=== PATIENT | female | born 1960 ===

== ENCOUNTER 2017-03-16 19:42 | Emergency (ER) | payer MEDICAID ==
[2017-03-16 19:43] VITALS: BMI 25.2
[2017-03-16 19:56] VITALS: BP 131/91; PULSE 78; RESP 16; TEMP 97.6; O2SAT 98
--- NOTE | 2017-03-16 20:32 | ED PDOC ---
HPI: General Adult Time Seen by Provider: 03/16/17 20:08 Chief Complaint (Nursing): Flu-like Symptoms Chief Complaint (Provider): chronic pain History Per: Patient Additional Complaint(s): 56 year old female with history of chronic back pain presents to ED requesting refill of pain medications. Patient takes narco daily and has been out of these meds. Patient denies any fall or trauma. Past Medical History Reviewed: Historical Data, Nursing Documentation, Vital Signs Vital Signs: Last Vital Signs Temp 97.6 F 03/16/17 19:46 Pulse 78 03/16/17 19:46 Resp 16 03/16/17 19:46 BP 131/91 H 03/16/17 19:46 Pulse Ox 98 03/16/17 19:46 - Medical History PMH: Anxiety, Back Problems, CVA (3 times, 2000, 2001 and 2010 with residual left weakness ), Depression, Gastritis, Gall Bladder Disease, HTN, Hypercholesterolemia, Kidney Stones, Migraine, Chronic Kidney Disease, Chronic Pain - Surgical History Surgical History: Appendectomy, Cholecystectomy, Endoscopy, Tonsillectomy, C- Section - Family History Family History: States: No Known Family Hx, Hypertension - Living Arrangements Living Arrangements: With Family - Immunization History Hx Tetanus Toxoid Vaccination: (UTD) - Home Medications Home Medications: Ambulatory Orders Medication Instructions Recorded Labetalol [Trandate] 200 mg PO Q8 #0 tab 05/08/15 NIFEdipine ER [Nifedipine ER] 60 mg PO DAILY #0 ter 05/08/15 Spironolactone [Aldactone] 50 mg PO DAILY #0 tab 05/08/15 Cyclobenzaprine [Flexeril] 10 mg PO Q8 PRN #15 tab 08/04/15 traMADol [Ultram] 50 mg PO Q8 #10 tab 05/05/16 Hydrocodone/Acetaminophen [[place] 10 - 325 mg PO Q6 PRN 12/05/16 10-325 Tablet] Zolpidem [Ambien] 10 mg PO HS 12/05/16 - Allergies Allergies/Adverse Reactions: Allergies Allergy/AdvReac Type Severity Reaction Status Date / Time ciprofloxacin [From Cipro] Allergy RASH Verified 08/02/15 10:28 ciprofloxacin HCl Allergy RASH Verified 08/02/15 10:28 [From Cipro] ketorolac tromethamine Allergy RASH Verified 08/02/15 10:28 [From Toradol] seafood AdvReac RASH Uncoded 12/05/16 08:48 Review of Systems ROS Statement: Except As Marked, All Systems Reviewed And Found Negative Constitutional: Negative for: Fever, Chills Musculoskeletal: Positive for: Back Pain Physical Exam - Reviewed Nursing Documentation Reviewed: Yes Vital Signs Reviewed: Yes - Physical Exam Appears: Positive for: Well Skin: Negative for: Rash Eye Exam: Positive for: Normal appearance Back: Positive for: Vertebral Tenderness (lumbar). Negative for: L CVA Tenderness, R CVA Tenderness Neurologic/Psych: Positive for: Alert, Oriented - ECG O2 Sat by Pulse Oximetry: 98 Pulse Ox Interpretation: Normal Medical Decision Making Medical Decision Makin56 year old with chronic pain Therapist Respiratory explained to patient the [facility] Pain Management Policy and she was given a copy of the policy. Patient asked to be seen by , Dr. Buchanan came to bedside to reiterate the same information. Patient was given discharge instructions but she refused to sign and she left ED. Disposition - Clinical Impression Clinical Impression: Chronic pain - Disposition Referrals: Rashard Hemphill MD [Medical Doctor] - Disposition: Routine/Home Disposition Time: 20:36 Condition: STABLE Additional Instructions: Follow up with pain management as soon as possible Instructions: Chronic Pain (ED)
== END 2017-03-16 20:52 | disposition home or self-care (01) ==
LOC: H.ER 19:42
DX: G89.29 Other chronic pain (principal); E78.00 Pure hypercholesterolemia, unspecified; F32.9 Major depressive disorder, single episode, unspecified; F41.9 Anxiety disorder, unspecified; I12.9 Hypertensive chronic kidney disease with stage 1 through stage 4 chronic kidney disease, or unspecified chronic kidney disease

== ENCOUNTER 2017-09-07 19:36 | Emergency (ER) | payer MEDICAID ==
[2017-09-07 19:37] VITALS: BMI 24.5
[2017-09-07 20:18] VITALS: BP 155/99; PULSE 98; RESP 16; TEMP 97.5; O2SAT 100
== END 2017-09-07 21:30 | disposition left against medical advice (07) ==
LOC: H.ER 19:36
DX: Z02.89 Encounter for other administrative examinations (principal)

== ENCOUNTER 2017-12-05 08:30 | Emergency (ER) | payer MEDICAID ==
[2017-12-05 08:40] VITALS: BMI 25.2
[2017-12-05] MEDS ORDERED: Naproxen 500 MG TAB PO STA (09:23)
--- NOTE | 2017-12-05 09:29 | ED PDOC ---
HPI: Headache Time Seen by Provider: 12/05/17 09:07 Chief Complaint (Nursing): Headache Chief Complaint (Provider): Headache History Per: Patient History/Exam Limitations: no limitations Onset/Duration Of Symptoms: Days Current Symptoms Are (Timing): Still Present Associated Symptoms: Photophobia. denies: Blurred Vision, Nausea, Vomiting Additional Complaint(s): 57 y/o female with a PMHx of migraines presents to the ED complaining of headache. Patient reports she sees an opthamologist for pain behind the left eye. Patient states she is on Toradol and eye drops. Patient reports of taking Vicodine and Vicks Rub with no relief. Patient states her last CT of the head and brain MRI was 2 years ago. Of note, patient was seen at [facility] ER on 2017 for chronic pain issues. Denies fever, neck stiffness, nausea, vomiting and visual changes. PMD: John Washington Past Medical History Reviewed: Historical Data, Nursing Documentation, Vital Signs Vital Signs: Last Vital Signs Temp 98.5 F 12/05/17 08:40 Pulse 90 12/05/17 08:40 Resp 18 12/05/17 08:40 BP 152/101 H 12/05/17 08:40 Pulse Ox 99 12/05/17 08:40 - Medical History PMH: Anxiety, Back Problems, CVA (3 times, 2000, 2001 and 2010 with residual left weakness ), Depression, Gastritis, Gall Bladder Disease, HTN, Hypercholesterolemia, Kidney Stones, Migraine, Chronic Kidney Disease, Chronic Pain - Surgical History Surgical History: Appendectomy, Cholecystectomy, Endoscopy, Tonsillectomy, C- Section - Family History Family History: States: Hypertension - Immunization History Hx Tetanus Toxoid Vaccination: (UTD) Hx Influenza Vaccination: No Hx Pneumococcal Vaccination: No - Home Medications Home Medications: Ambulatory Orders Medication Instructions Recorded Labetalol [Trandate] 200 mg PO Q8 #0 tab 05/08/15 Spironolactone [Aldactone] 50 mg PO DAILY #0 tab 05/08/15 traMADol [Ultram] 50 mg PO Q8 #10 tab 05/05/16 Hydrocodone/Acetaminophen [[place] 10 - 325 mg PO Q6 PRN 12/05/16 10-325 Tablet] Zolpidem [Ambien] 10 mg PO HS 12/05/16 Cyclobenzaprine [Flexeril] 10 mg PO Q12 PRN #10 tab 05/01/17 - Allergies Allergies/Adverse Reactions: Allergies Allergy/AdvReac Type Severity Reaction Status Date / Time ciprofloxacin [From Cipro] Allergy RASH Verified 11/25/17 12:05 ciprofloxacin HCl Allergy RASH Verified 11/25/17 12:05 [From Cipro] ketorolac tromethamine Allergy RASH Verified 11/25/17 12:05 [From Toradol] seafood AdvReac RASH Uncoded 11/25/17 12:05 Review of Systems ROS Statement: Except As Marked, All Systems Reviewed And Found Negative Constitutional: Negative for: Fever Eyes: Negative for: Vision Change Gastrointestinal: Negative for: Nausea, Vomiting Musculoskeletal: Negative for: Neck Pain Neurological: Positive for: Headache. Negative for: Weakness Physical Exam - Reviewed Nursing Documentation Reviewed: Yes Vital Signs Reviewed: Yes - Physical Exam Appears: Positive for: In Acute Distress Head Exam: Positive for: ATRAUMATIC, NORMOCEPHALIC Skin: Positive for: Normal Color, Warm, Dry Eye Exam: Positive for: Normal appearance, EOMI, PERRL Neck: Positive for: Normal, Painless ROM, Supple Cardiovascular/Chest: Positive for: Regular Rate, Rhythm. Negative for: Murmur Respiratory: Positive for: Normal Breath Sounds. Negative for: Respiratory Distress Gastrointestinal/Abdominal: Positive for: Normal Exam, Soft. Negative for: Tenderness Back: Positive for: Normal Inspection. Negative for: L CVA Tenderness, R CVA Tenderness, Vertebral Tenderness Extremity: Positive for: Normal ROM. Negative for: Deformity Neurologic/Psych: Positive for: Alert, Oriented. Negative for: Motor/Sensory Deficits - ECG O2 Sat by Pulse Oximetry: 99 (RA) Pulse Ox Interpretation: Normal Medical Decision Making Medical Decision Making: Time: 922 Plan: -- CT Head w/o Contrast -- Naproxen 500 mg PO Accession No. : [id number] Patient Name / ID : STEPHANIE OLIVIA / [id number] Exam Date : 12/05/2017 09:37:01 ( Approved ) Study Comment : Sex / Age : F / 57Y Creator : India Mcneil MD Dictator : India Mcneil MD Post Office Manager : Commercial Accountant : India Mcneil MD Approver2 : Report Date : 12/05/2017 10:05:51 My Comment : Date of service: 12/05/2017 PROCEDURE: CT HEAD WITHOUT CONTRAST. HISTORY: [facility] COMPARISON: 2015 TECHNIQUE: Axial computed tomography images were obtained through the head/brain without intravenous contrast. Radiation dose: Total exam DLP = 637 MGy-cm. This CT exam was performed using one or more of the following dose reduction techniques: Automated exposure control, adjustment of the mA and/or kV according to patient size, and/or use of iterative reconstruction technique. FINDINGS: HEMORRHAGE: No intracranial hemorrhage. BRAIN: No mass effect or edema. There is a small chronic area of encephalomalacia in the right caudate consistent with chronic lacunar infarct. There is additionally stable appearance of the patient's mild right temporal encephalomalacia. No new cortical effacement is seen. Mild scattered small vessel changes are noted in the white matter tracts. Posterior fossa is unchanged. There is moderate calcific atherosclerotic change of the distal vertebral arteries, basilar artery, and intracranial internal carotid arteries. VENTRICLES: Unremarkable. No hydrocephalus. CALVARIUM: Unchanged from prior study. PARANASAL SINUSES: Unremarkable as visualized. No significant inflammatory changes. MASTOID AIR CELLS: Unremarkable as visualized. No inflammatory changes. OTHER FINDINGS: None. IMPRESSION: No evidence of recent infarct or acute intracranial hemorrhage. Stable small vessel changes and small chronic lacunar infarct in the right caudate. Stable mild encephalomalacia in the right temporal lobe. Scribe Attestation: Documented by Nemo Bradley acting as a scribe for Zo Crow MD. Provider Scribe Attestation: All medical record entries made by the Scribe were at my direction and personally dictated by me. I have reviewed the chart and agree that the record accurately reflects my personal performance of the history, physical exam, medical decision making, and the department course for this patient. I have also personally directed, reviewed, and agree with the discharge instructions and disposition. Disposition - Clinical Impression Clinical Impression: Chronic headache disorder - Patient ED Disposition Is Patient to be Admitted: No - Disposition Referrals: John Washington MD [Staff Provider] - Disposition: Routine/Home Disposition Time: 11:00 Condition: IMPROVED Instructions: Headache, Adult Forms: [facility] (Greek)
[2017-12-05] MEDS ORDERED: Naproxen 500 MG TAB PO ONE (09:40)
--- NOTE | 2017-12-05 10:07 | CT ---
Date of service: 12/05/2017 PROCEDURE: CT HEAD WITHOUT CONTRAST. HISTORY: [facility] COMPARISON: 2016 TECHNIQUE: Axial computed tomography images were obtained through the head/brain without intravenous contrast. Radiation dose: Total exam DLP = 637 MGy-cm. This CT exam was performed using one or more of the following dose reduction techniques: Automated exposure control, adjustment of the mA and/or kV according to patient size, and/or use of iterative reconstruction technique. FINDINGS: HEMORRHAGE: No intracranial hemorrhage. BRAIN: No mass effect or edema. There is a small chronic area of encephalomalacia in the right caudate consistent with chronic lacunar infarct. There is additionally stable appearance of the patient's mild right temporal encephalomalacia. No new cortical effacement is seen. Mild scattered small vessel changes are noted in the white matter tracts. Posterior fossa is unchanged. There is moderate calcific atherosclerotic change of the distal vertebral arteries, basilar artery, and intracranial internal carotid arteries. VENTRICLES: Unremarkable. No hydrocephalus. CALVARIUM: Unchanged from prior study. PARANASAL SINUSES: Unremarkable as visualized. No significant inflammatory changes. MASTOID AIR CELLS: Unremarkable as visualized. No inflammatory changes. OTHER FINDINGS: None. IMPRESSION: No evidence of recent infarct or acute intracranial hemorrhage. Stable small vessel changes and small chronic lacunar infarct in the right caudate. Stable mild encephalomalacia in the right temporal lobe.
[2017-12-05 10:59] VITALS: RESP 19
[2017-12-05 11:41] VITALS: BP 140/93; PULSE 80; TEMP 98.7
[2017-12-05 17:55] VITALS: O2SAT 99
== END 2017-12-05 11:42 | disposition home or self-care (01) ==
LOC: H.ER 08:30
DX: R51 Headache (principal); G89.29 Other chronic pain; I12.9 Hypertensive chronic kidney disease with stage 1 through stage 4 chronic kidney disease, or unspecified chronic kidney disease; Z86.59 Personal history of other mental and behavioral disorders; N18.9 Chronic kidney disease, unspecified; Z87.442 Personal history of urinary calculi; G93.89 Other specified disorders of brain

== ENCOUNTER 2018-04-06 19:46 | Emergency (ER) | payer MEDICAID ==
[2018-04-06 19:47] VITALS: BMI 25.2
--- NOTE | 2018-04-06 20:24 | ED PDOC ---
HPI: General Adult Time Seen by Provider: 04/06/18 20:10 Chief Complaint (Nursing): Upper Extremity Problem/Injury Chief Complaint (Provider): bodyaches History Per: Patient History/Exam Limitations: no limitations Onset/Duration Of Symptoms: Days (3) Current Symptoms Are (Timing): Still Present Additional Complaint(s): 57 y/o female presents for evaluation of bodyaches x 3 days. Patient reports long standing of history of pain to extremities; states it usually happens when her potassium is low. Patient has been taking pain Vicodin and Tramadol without improvement. Denies fever, headache, dizziness, nausea/vomiting, chest pain, shortness of breath, palpitations, abdominal pain, changes in bowel movements, leg swelling, recent travel. Past Medical History Reviewed: Historical Data, Nursing Documentation, Vital Signs Vital Signs: Last Vital Signs Temp 98.4 F 04/06/18 20:00 Pulse 111 H 04/06/18 20:00 Resp 16 04/06/18 20:00 BP 146/96 H 04/06/18 20:00 Pulse Ox 98 04/06/18 20:00 - Medical History PMH: Anxiety, Back Problems, CVA (3 times, 2000, 2001 and 2010 with residual left weakness ), Depression, Gastritis, Gall Bladder Disease, HTN, Hypercholesterolemia, Kidney Stones, Migraine, Chronic Kidney Disease, Chronic Pain - Surgical History Surgical History: Appendectomy, Cholecystectomy, Endoscopy, Tonsillectomy, C- Section - Family History Family History: States: Hypertension - Immunization History Hx Tetanus Toxoid Vaccination: (UTD) Hx Influenza Vaccination: No Hx Pneumococcal Vaccination: No - Home Medications Home Medications: Ambulatory Orders Medication Instructions Recorded Labetalol [Trandate] 200 mg PO Q8 #0 tab 05/08/15 Spironolactone [Aldactone] 50 mg PO DAILY #0 tab 05/08/15 traMADol [Ultram] 50 mg PO Q8 #10 tab 05/05/16 Hydrocodone/Acetaminophen [[place] 10 - 325 mg PO Q6 PRN 12/05/16 10-325 Tablet] Zolpidem [Ambien] 10 mg PO HS 12/05/16 Cyclobenzaprine [Flexeril] 10 mg PO Q12 PRN #10 tab 05/01/17 - Allergies Allergies/Adverse Reactions: Allergies Allergy/AdvReac Type Severity Reaction Status Date / Time ciprofloxacin [From Cipro] Allergy RASH Verified 04/06/18 20:00 ciprofloxacin HCl Allergy RASH Verified 04/06/18 20:00 [From Cipro] ketorolac tromethamine Allergy RASH Verified 04/06/18 20:00 [From Toradol] seafood AdvReac RASH Uncoded 04/06/18 20:00 Review of Systems ROS Statement: Except As Marked, All Systems Reviewed And Found Negative Musculoskeletal: Positive for: Arm Pain, Leg Pain Physical Exam - Reviewed Nursing Documentation Reviewed: Yes Vital Signs Reviewed: Yes - Physical Exam Appears: Positive for: Well, Non-toxic, No Acute Distress Head Exam: Positive for: ATRAUMATIC, NORMAL INSPECTION, NORMOCEPHALIC Skin: Positive for: Normal Color Eye Exam: Positive for: Normal appearance ENT: Positive for: Normal ENT Inspection Cardiovascular/Chest: Positive for: Regular Rate, Rhythm Respiratory: Positive for: Normal Breath Sounds Gastrointestinal/Abdominal: Positive for: Normal Exam Back: Positive for: Normal Inspection Extremity: Positive for: Normal ROM. Negative for: Calf Tenderness Neurologic/Psych: Positive for: Alert, Oriented (x3) - Laboratory Results Result Diagrams: 04/06/18 20:38 04/06/18 21:58 - ECG O2 Sat by Pulse Oximetry: 98 - Progress ED Course And Treament: -cbc -cmp -magnesium -phosphorous -Percocet PO -Flexeril PO On re-eval, patient states pain improved Patient requesting Percocet rx,. [place] patient received 60 tablets of Tramadol 50mg and Vicodin 7.5/325mg tablets on 03/25/18; advised no narcotic rx will be given and she will need to follow up with her pain management. Offered Naproxen but patient declined. Patient requires no further intervention in the ED and is stable for discharge at this time Return precautions given Disposition - Clinical Impression Clinical Impression: Generalized pain - Patient ED Disposition Is Patient to be Admitted: No Counseled Patient/Family Regarding: Studies Performed, Diagnosis, Need For Followup - Disposition Disposition: Routine/Home Disposition Time: 22:43 Condition: IMPROVED Instructions: Chronic Pain Forms: [facility] (Maltese)
[2018-04-06] MEDS ORDERED: Oxycodone/Acetaminophen 5/325 mg Tab PO ONE (20:42)
[2018-04-06 20:44] LABS: BASO # 0.1 K/uL (0.0-0.2); BASO % 0.7 % (0.0-2.0); EOS % 0.7 % (0.0-4.0); HEMOGLOBIN 12.8 g/dL (12.0-16.0); MEAN CELL VOLUME 87.8 fl (81.0-99.0); MEAN CORPUSCULAR HEMOGLOBIN 29.6 pg (27.0-31.0); MEAN CORPUSCULAR HGB CONC 33.7 g/dL (33.0-37.0); MEAN PLATELET VOLUME 9.2 fl (7.2-11.7); MONO # 0.5 K/uL (0.0-0.8); MONO % 6.6 % (0.0-10.0); NEUT # 4.9 K/uL (1.8-7.0); NRBC % 0.1 % (0.0-0.0); RBC 4.33 Mil/uL (3.80-5.20); RED CELL DISTRIBUTION WIDTH 13.8 % (11.5-14.5); WHITE BLOOD COUNT 7.5 K/uL (4.8-10.8)
[2018-04-06] MEDS ORDERED: Oxycodone/Acetaminophen 5/325 mg Tab ONE (20:52)
[2018-04-06 21:10] LABS: BLOOD UREA NITROGEN 27 mg/dl (7-17); CALCIUM 9.8 mg/dL (8.4-10.2); GFR NON-AFRICAN AMERICAN 58
[2018-04-06 21:41] LABS: ALB/GLOB RATIO 1.4 (1.0-2.1); ALBUMIN 4.6 g/dL (3.5-5.0); ALT/SGPT 29 U/L (9-52); AST/SGOT 40 U/L (14-36)
[2018-04-06 22:52] VITALS: BP 148/95; PULSE 99; RESP 18; TEMP 98.3; O2SAT 99
== END 2018-04-06 23:00 | disposition home or self-care (01) ==
LOC: H.ER 19:46
DX: G89.29 Other chronic pain (principal); E78.00 Pure hypercholesterolemia, unspecified; I12.9 Hypertensive chronic kidney disease with stage 1 through stage 4 chronic kidney disease, or unspecified chronic kidney disease

== ENCOUNTER 2018-05-12 14:46 | Emergency (ER) | payer MEDICAID ==
[2018-05-12 15:03] VITALS: BMI 26.9
[2018-05-12 15:04] VITALS: BP 144/94; PULSE 98; RESP 20; TEMP 99.2; O2SAT 100
--- NOTE | 2018-05-12 15:42 | ED PDOC ---
HPI: Back Time Seen by Provider: 05/12/18 15:20 Chief Complaint (Nursing): Back Pain Chief Complaint (Provider): back pain History Per: Patient (57 y/o female with chronic back exacerbated by leaning forward doing laundry. States she had worsening pain yesteday and attempted use of mother's percocet without relief. Took 2 vicodin without any additional help. States she tried multiple tylenol and went to [facility] dr[facility] hemphill office but unable to be seen . Was advised by office staff to go to ED for worsening pain. Was last seen by Dr. Hemphill 05/06/2018 and written hydrocodone #60. Next appt next .) Past Medical History Reviewed: Historical Data, Nursing Documentation, Vital Signs Vital Signs: Last Vital Signs Temp 99.2 F 05/12/18 15:03 Pulse 98 H 05/12/18 15:03 Resp 20 05/12/18 15:03 BP 144/94 H 05/12/18 15:03 Pulse Ox 100 05/12/18 15:03 - Medical History PMH: Anxiety, Back Problems, CVA (3 times, 2000, 2001 and 2010 with residual left weakness ), Depression, Gastritis, Gall Bladder Disease, HTN, Hypercholesterolemia, Kidney Stones, Migraine, Chronic Kidney Disease, Chronic Pain - Surgical History Surgical History: Appendectomy, Cholecystectomy, Endoscopy, Tonsillectomy, C- Section - Family History Family History: States: Hypertension - Immunization History Hx Tetanus Toxoid Vaccination: (UTD) Hx Influenza Vaccination: No Hx Pneumococcal Vaccination: No - Home Medications Home Medications: Ambulatory Orders Medication Instructions Recorded Labetalol [Trandate] 200 mg PO Q8 #0 tab 05/08/15 Spironolactone [Aldactone] 50 mg PO DAILY #0 tab 05/08/15 traMADol [Ultram] 50 mg PO Q8 #10 tab 05/05/16 Hydrocodone/Acetaminophen [[place] 10 - 325 mg PO Q6 PRN 12/05/16 10-325 Tablet] Zolpidem [Ambien] 10 mg PO HS 12/05/16 Cyclobenzaprine [Flexeril] 10 mg PO Q12 PRN #10 tab 05/01/17 diaZEpam [Valium] 5 mg PO Q8 PRN #4 tab 05/12/18 - Allergies Allergies/Adverse Reactions: Allergies Allergy/AdvReac Type Severity Reaction Status Date / Time ciprofloxacin [From Cipro] Allergy RASH Verified 05/12/18 15:01 ciprofloxacin HCl Allergy RASH Verified 05/12/18 15:01 [From Cipro] ketorolac tromethamine Allergy RASH Verified 05/12/18 15:01 [From Toradol] Review of Systems ROS Statement: Except As Marked, All Systems Reviewed And Found Negative Musculoskeletal: Positive for: Back Pain Physical Exam - Reviewed Nursing Documentation Reviewed: Yes Vital Signs Reviewed: Yes - Physical Exam Appears: Positive for: Well, Non-toxic, No Acute Distress Head Exam: Positive for: ATRAUMATIC, NORMAL INSPECTION, NORMOCEPHALIC Skin: Positive for: Normal Color, Warm, DRY Eye Exam: Positive for: EOMI, Normal appearance, PERRL ENT: Positive for: Normal ENT Inspection Neck: Positive for: Normal, Painless ROM Cardiovascular/Chest: Positive for: Regular Rate, Rhythm Respiratory: Positive for: CNT, Normal Breath Sounds Gastrointestinal/Abdominal: Positive for: Normal Exam, Soft Back: Positive for: Normal Inspection, Other (moderate lower lumbar tenderness) Extremity: Positive for: Normal ROM Neurologic/Psych: Positive for: Alert, Oriented - ECG O2 Sat by Pulse Oximetry: 100 - Progress ED Course And Treament: d/w Dr. Hemphill [phone]. States patient has h/o Bipolar disorder and requests no narcotic rx for her. d/w patient. Will give Valium 5 mg here and rx for muscular spasm. Offered lidocaine patch but patient refused stating it doesn't help her. Refuses naproxen as it causes her to vomit. States she is allergic to toradol Disposition - Clinical Impression Clinical Impression: Back strain - Patient ED Disposition Is Patient to be Admitted: No - Disposition Disposition: Routine/Home Disposition Time: 15:44 Condition: FAIR Prescriptions: diaZEpam [Valium] 5 mg PO Q8 PRN #4 tab PRN Reason: Muscle Spasm Instructions: Muscle Strain
== END 2018-05-12 15:52 | disposition home or self-care (01) ==
LOC: H.ER 14:46
DX: S39.012A Strain of muscle, fascia and tendon of lower back, initial encounter (principal); G89.29 Other chronic pain; Z86.59 Personal history of other mental and behavioral disorders; I12.9 Hypertensive chronic kidney disease with stage 1 through stage 4 chronic kidney disease, or unspecified chronic kidney disease; Z87.442 Personal history of urinary calculi; Z88.1 Allergy status to other antibiotic agents

== ENCOUNTER 2018-07-24 13:01 | Emergency (ER) | payer MEDICAID ==
[2018-07-24 13:02] VITALS: BMI 26.9
[2018-07-24 13:11] VITALS: BP 132/87; RESP 16; TEMP 98.6; O2SAT 99
--- NOTE | 2018-07-24 14:11 | ED PDOC ---
Arrival/HPI - General Chief Complaint: Pain, Chronic Time Seen by Provider: 07/24/18 13:32 Historian: Patient - History of Present Illness Symptom Onset: Other (persistent, chronic) Severity Level: Moderate Associated Symptoms (Text): 07/24/18 13:32 58 year old female with a past medical history of chronic pain and for opioid use. Patient presents to the ED with complaints of lower back pain and leg pain. Patient was recently seen by her pain management doctor and was prescribed her usual prescription for pain medications. Patient state that her grandson threw them away in the trashcan. Patient states that she has not had pain medication for 12x days, although it has been 1 week and 2x days. Patient was seen at [facility] 2x days ago for the same complaint, requesting vicodin. Patient was not given narcotics at [facility]. Patient denies loss of control of urination and bowel habits, parathesias to extremities. PMD: None Past Medical History - Provider Review Nursing Documentation Reviewed: Yes CRISTHIAN Report Viewed: Yes Primary Care Provider: John Washington - Patient History Narrative Patient History: chronic back pain - Infectious Disease Hx of Infectious Diseases: None - Tetanus Immunization Tetanus Immunization: Unknown - Cardiac Hx Hypertension: Yes - Pulmonary Hx Respiratory Disorders: No - Neurological Hx Migraine: Yes - HEENT Hx HEENT Disorder: No - Renal Hx Renal Disorder: Yes Hx Kidney Stones: Yes - Endocrine/Metabolic Hx Endocrine Disorders: No - Hematological/Oncological Hx Blood Disorders: No Other/Comment: 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 - Integumentary Hx Dermatological Disorder: No - Musculoskeletal/Rheumatological Hx Herniated Disk: Yes - Gastrointestinal Hx Gall Bladder Disease: Yes Hx Gastritis: Yes - Genitourinary/Gynecological Hx Genitourinary Disorders: No - Psychiatric Hx Anxiety: Yes Hx Depression: Yes Hx Substance Use: No - Surgical History Hx Appendectomy: Yes Hx Cholecystectomy: Yes Hx Tonsillectomy: Yes - Anesthesia Hx Anesthesia: Yes Hx Anesthesia Reactions: No Hx Malignant Hyperthermia: No Family/Social History - Physician Review Nursing Documentation Reviewed: Yes Family/Social History: No Known Family HX Smoking Status: Current Some Days Smoker Hx Alcohol Use: No Hx Substance Use: Yes (prescription, vicodin) Route: Oral Allergies/Home Meds Allergies/Adverse Reactions: Allergies ciprofloxacin [From Cipro] Allergy (Verified 07/24/18 13:07) RASH PER PATIENT ciprofloxacin HCl [From Cipro] Allergy (Verified 07/24/18 13:07) RASH PER PATIENT ketorolac tromethamine [From Toradol] Allergy (Verified 07/24/18 13:07) RASH PER PATIENT Home Medications: Home Meds Medication Instructions Recorded Confirmed Hydrocodone/Acetaminophen [[place] 10 - 325 mg PO Q6 PRN 12/05/16 07/22/18 10-325 Tablet] Zolpidem [Ambien] 10 mg PO HS 12/05/16 07/22/18 Review of Systems - Physician Review All systems were reviewed & negative as marked: Yes - Review of Systems Musculoskeletal: Back Pain (lower), Other (bilateral leg pain) Physical Exam Vital Signs Reviewed: Yes Vital Signs Temp Pulse Resp BP Pulse Ox 07/24/18 13:09 98.6 F 98 H 16 132/87 99 Appearance: Positive for: Well-Appearing, Non-Toxic, Comfortable Pain Distress: None Mental Status: Positive for: Alert and Oriented X 3 - Systems Exam Head: Present: Atraumatic, Normocephalic Respiratory/Chest: Present: Clear to Auscultation Cardiovascular: Present: Regular Rate and Rhythm Back: Present: Normal Inspection Lower Extremity: Present: Normal Inspection Skin: Present: Warm, Dry, Normal Color. No: Rashes Psychiatric: Present: Alert, Oriented x 3 Medical Decision Making ED Course and Treatment: 07/24/18 13:32 Initial impression: 58 year old female with chronic pain. Here, patient is offered to be given motrin for pain, as she is allergic to toradol. Patient refusing motrin stating it does not help. Patient advised of narcotics policy in the ED. Agreed to be given 1x tramadol. Patient agrees to follow up with pain management doctor in 5x days as scheduled. Patient stable for discharge home. Patient verified on [place] [employer] aware. Last fill: for tramadol and vicodin: 07/15/2018. Patient will be discharged home. Counseling was provided and all questions were answered regarding diagnosis and need for follow up with pain management doctor in 5x days as scheduled. There is agreement to discharge plan. Return if symptoms persist or worsen. Scribe Attestation: Documented by Jaclyn Hunt, acting as a scribe for Shandra Dey APN. Provider Scribe Attestation: All medical record entries made by the Scribe were at my direction and personally dictated by me. I have reviewed the chart and agree that the record accurately reflects my personal performance of the history, physical exam, medical decision making, and the department course for this patient. I have also personally directed, reviewed, and agree with the discharge instructions and disposition. 07/24/18 18:47 Disposition/Present on Arrival - Present on Arrival Any Indicators Present on Arrival: No History of DVT/PE: No History of Uncontrolled Diabetes: No Urinary Catheter: No History Surgical Site Infection Following: None - Disposition Have Diagnosis and Disposition been Completed?: Yes Diagnosis: Chronic back pain Disposition: HOME/ ROUTINE Disposition Time: 13:50 Condition: GOOD Discharge Instructions (ExitCare): Low Back Pain in Adults Print Language: DUTCH
[2018-07-24 14:15] VITALS: PULSE 86
== END 2018-07-24 14:05 | disposition home or self-care (01) ==
LOC: H.ER 13:01
DX: M54.9 Dorsalgia, unspecified (principal)

== ENCOUNTER 2018-08-20 17:43 | Emergency (ER) | payer MEDICAID ==
[2018-08-20 17:44] VITALS: BMI 26.9
[2018-08-20 18:24] VITALS: BP 140/93; PULSE 99; RESP 16; TEMP 99.2; O2SAT 100
--- NOTE | 2018-08-20 18:41 | ED PDOC ---
Lower Extremity Pain/Injury Time Seen by Provider: 08/20/18 18:30 Chief Complaint (Nursing): Lower Extremity Problem/Injury Chief Complaint (Provider): Lower Extremity Problem/Injury History Per: Patient History/Exam Limitations: no limitations Onset/Duration Of Symptoms: Days Current Symptoms Are (Timing): Still Present Additional Complaint(s): 58 y/o female with a PMHx of chronic back pain presents to the ED for evaluation of left thigh pain, onset one week ago. Patient denies any falls but thinks pain could be a muscle strain. However, patient is unclear of the cause. Previous record reviewed demonstrates patient was seen in this ER on 07/24/2018 for the similar complaint and instructed to follow up with Pain Management Doctor. 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 ), Depression, Gastritis, Gall Bladder Disease, HTN, Hypercholesterolemia, Kidney Stones, Migraine, Chronic Kidney Disease, Chronic Pain - Surgical History Surgical History: Appendectomy, Cholecystectomy, Endoscopy, Tonsillectomy, C- Section - Family History Family History: States: Hypertension - Immunization History Hx Tetanus Toxoid Vaccination: (UTD) Hx Influenza Vaccination: No Hx Pneumococcal Vaccination: No - Home Medications Home Medications: Ambulatory Orders Medication Instructions Recorded Labetalol [Trandate] 200 mg PO Q8 #0 tab 05/08/15 Spironolactone [Aldactone] 50 mg PO DAILY #0 tab 05/08/15 traMADol [Ultram] 50 mg PO Q8 #10 tab 05/05/16 Hydrocodone/Acetaminophen [[place] 10 - 325 mg PO Q6 PRN 12/05/16 10-325 Tablet] Zolpidem [Ambien] 10 mg PO HS 12/05/16 Cyclobenzaprine [Flexeril] 10 mg PO Q12 PRN #10 tab 05/01/17 diaZEpam [Valium] 5 mg PO Q8 PRN #4 tab 05/12/18 diaZEpam [Valium] 5 mg PO Q8 PRN #3 tab 08/20/18 - Allergies Allergies/Adverse Reactions: Allergies Allergy/AdvReac Type Severity Reaction Status Date / Time ciprofloxacin [From Cipro] Allergy RASH Verified 07/24/18 13:07 ciprofloxacin HCl Allergy RASH Verified 07/24/18 13:07 [From Cipro] ketorolac tromethamine Allergy RASH Verified 07/24/18 13:07 [From Toradol] Review of Systems ROS Statement: Except As Marked, All Systems Reviewed And Found Negative Musculoskeletal: Positive for: Leg Pain Physical Exam - Reviewed Nursing Documentation Reviewed: Yes Vital Signs Reviewed: Yes - Physical Exam Appears: Positive for: No Acute Distress Extremity: Positive for: Tenderness (tenderness to palpation to the left quad) - ECG O2 Sat by Pulse Oximetry: 100 (RA) Pulse Ox Interpretation: Normal - Progress ED Course And Treament: XRY OF HIP: NEG FOR ABNORMALITY XRY OF FEMUR: NEG FOR ABNORMALITY Medical Decision Making Medical Decision Making: Time: 1833 Impression: Left Thigh Pain Plan: -- Femur Left XR -- Hip Left XR Scribe Attestation: Documented by Nemo Bradley, acting as a scribe Kim Rubin PA-C. Provider Scribe Attestation: All medical record entries made by the Scribe were at my direction and personally dictated by me. I have reviewed the chart and agree that the record accurately reflects my personal performance of the history, physical exam, medical decision making, and the department course for this patient. I have also personally directed, reviewed, and agree with the discharge instructions and disposition. Disposition - Clinical Impression Clinical Impression: Thigh pain - Disposition Disposition: Routine/Home Disposition Time: 19:13 Condition: FAIR Prescriptions: diaZEpam [Valium] 5 mg PO Q8 PRN #3 tab PRN Reason: Muscle Spasm Instructions: Muscle and Bone Pain (DC)
--- NOTE | 2018-08-21 08:29 | RAD ---
Date of service: 08/20/2018 HISTORY: THIGH PAIN COMPARISON: None available. TECHNIQUE: 1 view obtained. FINDINGS: BONES: Normal. No fracture. JOINTS: Normal. No osteoarthritis. SOFT TISSUE: Normal. OTHER FINDINGS: None . IMPRESSION: Normal Bone Xray.
--- NOTE | 2018-08-21 08:34 | RAD ---
Date of service: 08/20/2018 PROCEDURE: Radiographs of the pelvis. HISTORY: THIGH PAIN COMPARISON: None. TECHNIQUE: 1 view obtained. FINDINGS: BONES: Pelvic Bones: Unremarkable. Hips: Grossly unremarkable. JOINTS: Sacroiliac Joints: Unremarkable. Pubic Symphysis: Unremarkable. OTHER FINDINGS: None. IMPRESSION: Unremarkable radiographs of the pelvis.
== END 2018-08-20 19:13 | disposition home or self-care (01) ==
LOC: H.ER 17:43
DX: M79.652 Pain in left thigh (principal); E78.00 Pure hypercholesterolemia, unspecified; Z86.59 Personal history of other mental and behavioral disorders; G89.29 Other chronic pain; I12.9 Hypertensive chronic kidney disease with stage 1 through stage 4 chronic kidney disease, or unspecified chronic kidney disease; N18.9 Chronic kidney disease, unspecified; Z87.442 Personal history of urinary calculi; Z88.1 Allergy status to other antibiotic agents